=== PATIENT | male | born 1945 | race Two or more races ===

== ENCOUNTER 2022-03-15 09:19 | Inpatient (IN) | payer OTHER ==
[~2022-03-15] VITALS: Ht 157.5 cm; Wt 72.6 kg
[2022-03-15] MEDS ORDERED: ACID REDUCER20 M1 PO (10:05)
[2022-03-15] MEDS ORDERED: COZAAR100 MG PO ×2 (10:06→10:07)
[2022-03-15] MEDS ORDERED: VASOTEC20 MG PO (10:06)
[2022-03-15] MEDS ORDERED: NORVASC5 MG PO (10:06)
[2022-03-15] MEDS ORDERED: ISOSORBIDE DINI30 MG PO (10:06)
== END 2022-03-29 11:29 | disposition home or self-care (01) | DRG 330 ==
LOC: ER 09:19 → SURH 14:42 → SURG 14:42 → SURH 16:23
PROVIDERS: ADMIT Surgery; ATTEND Surgery
PROC: 0DTG4ZZ Resection of Left Large Intestine, Percutaneous Endoscopic Approach (ICD-10-PCS; principal; 2022-03-18)
PROC: 07BB4ZZ Excision of Mesenteric Lymphatic, Percutaneous Endoscopic Approach (ICD-10-PCS; 2022-03-18)
PROC: 30233N1 Transfusion of Nonautologous Red Blood Cells into Peripheral Vein, Percutaneous Approach (ICD-10-PCS; 2022-03-18)
PROC: 4A12X4Z Monitoring of Cardiac Electrical Activity, External Approach (ICD-10-PCS; 2022-03-21)
DX: C18.4 Malignant neoplasm of transverse colon (principal); K56.7 Ileus, unspecified; N17.8 Other acute kidney failure; R78.81 Bacteremia; K92.2 Gastrointestinal hemorrhage, unspecified; K91.89 Other postprocedural complications and disorders of digestive system; N13.8 Other obstructive and reflux uropathy; Z16.12 Extended spectrum beta lactamase (ESBL) resistance; E86.0 Dehydration; D64.9 Anemia, unspecified; E83.42 Hypomagnesemia; R50.82 Postprocedural fever; I10 Essential (primary) hypertension; E11.9 Type 2 diabetes mellitus without complications; E78.5 Hyperlipidemia, unspecified; Z79.4 Long term (current) use of insulin; Z95.0 Presence of cardiac pacemaker; B96.20 Unspecified Escherichia coli [E. coli] as the cause of diseases classified elsewhere; I80.8 Phlebitis and thrombophlebitis of other sites